=== PATIENT | female | born 1960 | race Asian ===

== ENCOUNTER 2017-09-05 16:45 | Observation (INO) | payer OTHER ==
[~2017-09-05] VITALS: Ht 170.2 cm; Wt 60.3 kg
[2017-09-05 17:56] VITALS: BP 123/52; TEMP 99.9; Ht 170.2 cm; Wt 60.3 kg
[2017-09-05 18:04] LABS: PLATELET COUNT 318 K/uL (152-353)
[2017-09-05 18:16] LABS: POTASSIUM 3.4 mmol/L (3.6-5.2)
[2017-09-05 20:00] VITALS: BP 115/71; TEMP 99.8
[2017-09-06] VITALS: BP 105/65; TEMP 99.2
[2017-09-06 04:00] VITALS: BP 117/63; TEMP 98
[2017-09-06 05:18] LABS: PLATELET COUNT 281 K/uL (152-353)
[2017-09-06 05:42] LABS: POTASSIUM 3.6 mmol/L (3.6-5.2)
[2017-09-06 08:00] VITALS: BP 134/84; TEMP 99.3
[2017-09-06 12:00] VITALS: BP 120/63; TEMP 99.2
== END 2017-09-06 17:23 | disposition home or self-care (01) ==
LOC: MED/SURG 16:45
PROVIDERS: ADMIT Family Medicine
DX: N20.2 Calculus of kidney with calculus of ureter (principal); R10.11 Right upper quadrant pain
CPT/HCPCS: 80053; 81000; 82330; 83605; 83735; 83970; 84100; 84443; 85027; 87040; 87077; 87086; 87088; 87186; 96365; 96366; 96367; 99220; G0378; G0379; J1885; Q9963